=== PATIENT | male | born 1970 | race American Indian/Alaskan Native ===

== ENCOUNTER 2016-08-16 10:51 | Day surgery (SDC) | payer BC ==
[2016-08-16] MEDS ORDERED: REGLAN IV ONE (11:15)
[2016-08-16] MEDS ORDERED: NON-FORMULARY IV NR (13:15)
[2016-08-16] MEDS ORDERED: D H E IV NR (14:00)
[2016-08-16 15:35] VITALS: BP 115/77
== END 2016-08-16 15:20 | disposition home or self-care (01) ==
LOC: OPU 10:51
PROVIDERS: ATTEND Specialist
DX: G43.909 Migraine, unspecified, not intractable, without status migrainosus (principal)
CPT/HCPCS: 96374; 96375; J2765